=== PATIENT | male | born 1950 | race Caucasian/White ===

== ENCOUNTER 2018-04-29 12:41 | Emergency (ER) | payer BC ==
[2018-04-29] MEDS: HYDROCODONE/APAP (5/325) TAB PO (14:43)
== END 2018-04-29 16:09 | disposition home or self-care (01) ==
LOC: FTE 16:09
DX: S22.41XA Multiple fractures of ribs, right side, initial encounter for closed fracture (principal); W19.XXXA Unspecified fall, initial encounter; Y92.9 Unspecified place or not applicable
CPT/HCPCS: 71100; 99283-25